=== PATIENT | female | born 1950 | race Caucasian/White ===

== ENCOUNTER 2017-09-01 06:12 | Outpatient (CLI) | payer BC ==
[~2017-09-01] VITALS: Ht 165.1 cm; Wt 90.7 kg
[~2017-09-01 06:12] MED LIST: ACHYD1T PO; AMLO1CAP4 PO; ASPI-84 PO; ASPI325T32 PO; IBP800T PO; LEVO125T PO; LEVO125T6 PO; LVT.1T; LVT.1T PO; MACRODANTIN PO; NF-ESOM40C PO; NFPRILOC40; NITR100C3 PO; OMEP20CA12 PO; OMEP40CA36 PO; PHEN200T27 PO; ROSU5TAB; SERT100T; SPIR50TA27; SRTR100T PO; SUCR1ORA5 PO; TRM50T PO; VIT B12; VIT D
[2017-09-01] MEDS ORDERED: SERT100T8 PO (15:34)
[2017-09-01] MEDS ORDERED: OMEP20CA12 PO (15:34)
[2017-09-01] MEDS ORDERED: LEVO150T6 PO (15:34)
== END 2017-09-01 15:42 ==
LOC: PREOP 06:12
PROVIDERS: ATTEND Specialist
DX: Z01.818 Encounter for other preprocedural examination (principal); H25.12 Age-related nuclear cataract, left eye

== ENCOUNTER 2017-09-08 09:08 | Day surgery (SDC) | payer MEDICARE, OTHER ==
[~2017-09-08] VITALS: Ht 165.1 cm; Wt 90.7 kg
[~2017-09-08 09:08] MED LIST changes: +LEVO150T6 PO; +SERT100T8 PO
[2017-09-08] MEDS ORDERED: VANCOMYCIN/BSS (COMPOUNDED) 10 MG/ML SYR OP ONE (09:15)
[2017-09-08] MEDS ORDERED: EPINEPHrine INJECTION 1 MG/ML AMP INJ ONE (09:15)
[2017-09-08] MEDS ORDERED: POVIDONE (BETADINE) OPHTH SOLN 5% 30 ML OP ONE (09:15)
[2017-09-08] MEDS ORDERED: TIMOLOL MALEATE 0.5% 5 ML (TIMOPTIC) BTL OU PRN (09:15)
[2017-09-08 09:30] VITALS: BP 152/70
[2017-09-08] MEDS ORDERED: MIDAZOLAM 2 MG/2 ML (VERSED) VIAL ONE (09:38)
[2017-09-08] MEDS: TETRACAINE 0.5% OPHTH SOLN 4 ML BTL (SINGLE DOSE ONLY) OU PRN ×4 (09:42→09:58)
[2017-09-08] MEDS ORDERED: LIDOCAINE PF 1% 2 ML VIAL (OR ONLY) IR PRN (09:45)
[2017-09-08] MEDS: CYCLOPENTOLATE 1% (CYCLOGYL) 2 ML DROPS OP SCH ×3 (09:47→09:58)
[2017-09-08] MEDS: PHENYLEPHRINE 10% OPHTH (NEO-SYN) 5 ML BTL OU SCH ×3 (09:47→09:58)
--- NOTE | 2017-09-08 09:59 | Ophthalmologist Pre-Op Note ---
Pre-Operative Progress Note H&P Reviewed The H&P was reviewed, patient examined and no changes noted. Date H&P Reviewed: Sep 08, 2017 Time H&P Reviewed: 09:58 Pre-Op Dx Cataract, Right Eye VERÓNICA PALM MD Sep 08, 2017 09:58
--- NOTE | 2017-09-08 10:52 | Ophthalmology Operative Report ---
Cataract removal/placement IOL PREOPERATIVE DIAGNOSIS: Cataract Right Eye POSTOPERATIVE DIAGNOSIS: Cataract Right Eye PROCEDURE: Cataract removal and placement of posterior chamber implant, right eye SURGEON: Michael Palm ANESTHESIA: Topical with sedation COMPLICATIONS: None ESTIMATED BLOOD LOSS: Minimal DESCRIPTION OF PROCEDURE: After proper informed consent was obtained, the patient, a 67 female, was taken to the Operating Room and the right eye was anesthetized with tetracaine. They right eye was then prepped and draped in the usual manner. A wire lid speculum was placed. A paracentesis was made at the left hand position. Preservative free lidocaine was injected into the anterior chamber followed by viscoelastic. A clear corneal incision was made in the temporal position. A capsulorrhexis was preformed and the central nuclear and cortical material were removed. The posterior capsule was polished and Cezar 24.0 SN6CWS IOL was placed into the capsular bag. The residual viscoelastic was aspirated and balanced saline solution was injected into the anterior chamber. 1.0 ml of Vancomycin (10mg/ 1.0ml) was injected into the anterior chamber. The would was checked and found to be water tight. The patient tolerated the procedure well without complications. MICHAEL PALM MD Sep 08, 2017 10:52
[2017-09-08 11:00] VITALS: BP 169/82
--- NOTE | 2017-09-08 14:25 | Anesthesia-General Post-Op ---
MAC Patient Condition Mental Status/LOC: Same as Preop Cardiovascular: Satisfactory Nausea/Vomiting: Absent Respiratory: Satisfactory Pain: Controlled Complications: Absent Post Op Complications Complications None Follow Up Care/Instructions Patient Instructions None needed. Anesthesiology Discharge Order Discharge Order Patient is doing well, no complaints, stable vital signs, no apparent adverse anesthesia problems. No complications reported per nursing. TIFFANI MCNAMARA CRNA Sep 08, 2017 14:24
== END 2017-09-08 11:05 | disposition home or self-care (01) ==
LOC: SDC 09:08
PROVIDERS: ATTEND Specialist
DX: H26.9 Unspecified cataract (principal); E03.9 Hypothyroidism, unspecified; K21.9 Gastro-esophageal reflux disease without esophagitis; M19.91 Primary osteoarthritis, unspecified site; Z79.899 Other long term (current) drug therapy

== ENCOUNTER 2017-09-26 05:49 | Outpatient (CLI) | payer MEDICARE, OTHER ==
[~2017-09-26] VITALS: Ht 165.1 cm; Wt 90.7 kg
== END 2017-09-26 11:18 ==
LOC: PREOP 05:49
PROVIDERS: ATTEND Specialist
DX: Z01.818 Encounter for other preprocedural examination (principal); H25.12 Age-related nuclear cataract, left eye

== ENCOUNTER 2017-09-29 06:56 | Day surgery (SDC) | payer MEDICARE, OTHER ==
[~2017-09-29] VITALS: Ht 165.1 cm; Wt 90.7 kg
[2017-09-29] MEDS: TETRACAINE 0.5% OPHTH SOLN 4 ML BTL (SINGLE DOSE ONLY) OU PRN ×4 (07:12→07:25)
[2017-09-29] MEDS ORDERED: LIDOCAINE PF 1% 2 ML AMP IR PRN (07:15)
[2017-09-29] MEDS ORDERED: POVIDONE (BETADINE) OPHTH SOLN 5% 30 ML OP ONE (07:15)
[2017-09-29] MEDS ORDERED: EPINEPHrine INJECTION 1 MG/ML AMP INJ ONE (07:15)
[2017-09-29] MEDS ORDERED: TIMOLOL MALEATE 0.5% 5 ML (TIMOPTIC) BTL OU PRN (07:15)
[2017-09-29] MEDS ORDERED: VANCOMYCIN/BSS (COMPOUNDED) 10 MG/ML SYR OP ONE (07:15)
[2017-09-29] MEDS: PHENYLEPHRINE 10% OPHTH (NEO-SYN) 5 ML BTL OU SCH ×3 (07:18→07:25)
[2017-09-29] MEDS: CYCLOPENTOLATE 1% (CYCLOGYL) 2 ML DROPS OP SCH ×3 (07:18→07:25)
[2017-09-29 07:19] VITALS: BP 138/73
[2017-09-29] MEDS ORDERED: MIDAZOLAM 2 MG/2 ML (VERSED) VIAL ONE (07:40)
[2017-09-29 08:05] VITALS: BP 145/82
--- NOTE | 2017-09-29 11:35 | Anesthesia-General Post-Op ---
MAC Patient Condition Mental Status/LOC: Same as Preop Cardiovascular: Satisfactory Nausea/Vomiting: Absent Respiratory: Satisfactory Pain: Controlled Complications: Absent Post Op Complications Complications None Follow Up Care/Instructions Patient Instructions None needed. Anesthesiology Discharge Order Discharge Order Patient is doing well, no complaints, stable vital signs, no apparent adverse anesthesia problems. No complications reported per nursing. MINOO GREER CRNA Sep 29, 2017 11:35
--- OUTSIDE RECORDS SUMMARY | 2017-10-01 03:56 | XMS REPORT | Clinical Summary ---
Author Author [facility] Organization [facility] Address Unknown Phone Unavailable Care Team Providers [employer] Project Manager Name Role Phone Sol Lee MD Unavailable Angela Patterson MD PCP Tiarra Saleh RN Unavailable Unavailable Tonia Huerta RN Unavailable Unavailable Source Comments Some departments are not documenting in the electronic medical record. If you do not see the information that you expected, contact Release of Information in the Health Information Management department at [phone] for further assistance in locating additional records.[facility] Allergies No Known Allergies Current Medications Prescription Sig. Disp. Refills Start End Date Status Date levothyroxine (SYNTHROID) Take 125 mcg by mouth Active 125 mcg tablet daily. famotidine (PEPCID) 10 mg Take 10 mg by mouth Active tablet daily. sertraline (ZOLOFT) 100 Take 150 mg by mouth Active mg tablet daily. amLODIPine (NORVASC) 10 Take 10 mg by mouth Active mg tablet daily. ciprofloxacin (CIPRO) 500 Take 1 Tab by mouth twice 2 Tab 0 05/01/20 Active mg tablet daily. 13 polyethylene glycol 3350 Take 1 Packet by mouth 12 Each 4 05/01/20 Active (MIRALAX) 17 g packet daily. 13 Active Problems Problem Noted Date AVTAR (stress urinary incontinence, female) 02/06/2013 Overview: AVTAR x5 years. Tried and failed pelvic floor exercises. SPARC 04/23/13, failed postop tov, constipation postop 05/15/13 improved pvr from 30-80mL and up to 120 and 350mL upon waking; excellent stream L ast Assessment & Plan: - continue void every 3 hours with post-void cic - rtc 2 months, for evaluation of pvr and determination to do sling lysis. Social History Tobacco Use Types Packs/Day Years Used Date Former Smoker 0.5 4 Quit: 06/19/1987 Alcohol Use Drinks/Week oz/Week Comments Yes 1-2 Glasses 0.0 of wine Sex Assigned at Date Recorded Not on file Last Filed Vital Signs Vital Sign Reading Time Taken Blood Pressure 153/88 05/15/2013 9:59 AM [employer]CHOOL SUPER[employer] Pulse 69 05/15/2013 9:59 AM SCHOOL SUPERVISOR Temperature 36.4 C (97.5 F) 04/23/2013 11:30 AM SCHOOL SUPERVISOR Respiratory Rate 14 05/15/2013 9:59 AM SCHOOL SUPERVISOR Oxygen Saturation 91% 04/23/2013 11:30 AM SCHOOL SUPERVISOR Inhaled Oxygen - - Concentration Weight 93.5 kg (206 lb 3.2 oz) 05/15/2013 9:59 AM SCHOOL SUPERVISOR Height 165.1 cm (5' 5") 05/15/2013 9:59 AM SCHOOL SUPERVISOR Body Mass Index 34.31 05/15/2013 9:59 AM SCHOOL SUPERVISOR Plan of Treatment Health Maintenance Due Date Last Done Comments HEPATITIS C SCREENING 1952 PHYSICAL (COMPREHENSIVE) 1959 EXAM PERTUSSIS VACCINE 1963 HIV SCREENING 1967 TETANUS VACCINE 1969 BREAST CANCER SCREENING 1992 COLORECTAL CANCER 2002 SCREENING SHINGLES VACCINE 2012 OSTEOPOROSIS SCREENING 2017 PREVNAR/PNEUMOVAX (#1) 2017 INFLUENZA VACCINE 03/19/2018 Results Not on filefrom Last 3 Months
--- OUTSIDE RECORDS SUMMARY | 2017-10-01 03:56 | XMS REPORT | Continuity of Care Document ---
Author Author [facility] Organization [facility] Address Unknown Phone Unavailable Allergies Active Description Code Type Severity Reaction Onset Reported/Identified Relationship to Patient Clinical Status Yes No Known Drug Allergies [id number] Drug Allergy Mild N/A 04/30/2009 Medications There is no data. Problems Date Dx Coded Attending Type Code Diagnosis Diagnosed By 03/24/2012 Ot 202.80 OTH LYMPHOMAS EXTRANODAL SOLID ORGAN U 03/24/2012 Ot 244.9 HYPOTHYROIDISM NOS 03/24/2012 Ot 272.4 HYPERLIPIDEMIA NEC/NOS 03/24/2012 Ot 300.00 ANXIETY STATE NOS 03/24/2012 Ot 311 DEPRESSIVE DISORDER NEC 03/24/2012 Ot 401.9 HYPERTENSION NOS 03/24/2012 Ot 530.81 ESOPHAGEAL REFLUX 03/24/2012 Ot 536.9 STOMACH FUNCTION DIS NOS 03/24/2012 Ot 784.0 HEADACHE 03/24/2012 Ot V10.87 HX OF THYROID MALIGNANCY 03/24/2012 Ot V17.1 FAMILY HX- STROKE 03/24/2012 Ot V17.3 FAM HX- ISCHEM HEART DIS 03/27/2012 Ot 202.80 OTH LYMPHOMAS EXTRANODAL SOLID ORGAN U 03/27/2012 Ot 244.9 HYPOTHYROIDISM NOS 03/27/2012 Ot 300.00 ANXIETY STATE NOS 03/27/2012 Ot 401.9 HYPERTENSION NOS 03/27/2012 Ot 530.81 ESOPHAGEAL REFLUX 03/27/2012 Ot 784.0 HEADACHE 03/27/2012 Ot V03.82 PROPHYLACTIC VACC AGAINST STREPTOCOCCUS 06/28/2012 Ot 244.9 HYPOTHYROIDISM NOS 06/28/2012 Ot 311 DEPRESSIVE DISORDER NEC 06/28/2012 Ot 401.9 HYPERTENSION NOS 06/28/2012 Ot 530.81 ESOPHAGEAL REFLUX 06/28/2012 Ot 592.1 CALCULUS OF URETER 06/28/2012 Ot V10.87 HX OF THYROID MALIGNANCY 06/28/2012 Ot V58.69 OTH MED,LT, CURRENT USE 04/30/2013 RY PRATHER, SAWYER Dunham Ot 788.20 RETENTION OF URINE NOS 11/28/2014 ORENDER DO, PUNEET S Ot 722.4 12/08/2014 ORENDER DO, PUNEET S Ot 721.2 12/08/2014 ORENDER DO, PUNEET S Ot 722.4 12/08/2014 ORENDER DO, PUNEET S Ot 722.4 12/09/2014 ORENDER DO, PUNEET S Ot 721.2 12/09/2014 ORENDER DO, PUNEET S Ot 722.4 12/16/2014 ORENDER DO, PUNEET S Ot 722.4 12/23/2014 ORENDER DO, PUNEET S Ot 722.4 12/25/2014 ORENDER DO, PUNEET S Ot 722.91 12/25/2014 ORENDER DO, PUNEET S Ot V57.1 12/29/2014 ORENDER DO, PUNEET S Ot 722.91 12/29/2014 ORENDER DO, PUNEET S Ot V57.1 01/01/2015 [facility] Ot 722.91 01/01/2015 [facility] Ot V57.1 01/08/2015 ORENDER DO, PUNEET S Ot 722.91 01/08/2015 SUGEYNDER DO, PUNEET S Ot V57.1 07/28/2015 Ot R07.89 07/28/2015 Ot R10.13 07/28/2015 Ot R20.2 08/05/2015 Ot R09.89 08/05/2015 Ot R42 09/01/2017 Ot 202.81 LYMPHOMAS NEC HEAD 09/01/2017 Ot 787.20 DYSPHAGIA, UNSPECIFIED 09/01/2017 Ot V15.3 HX OF IRRADIATION 09/01/2017 Ot V58.69 OTH MED,LT, CURRENT USE 09/01/2017 Ot V87.41 PERSONAL HISTORY OF ANTINEOPLASTIC CHEMO 09/01/2017 Ot 592.1 CALCULUS OF URETER 09/04/2017 VERÓNICA PALM MD Ot H25.12 AGE-RELATED NUCLEAR CATARACT, LEFT EYE 09/04/2017 VERÓNICA PALM MD Ot Z01.818 ENCOUNTER FOR OTHER PREPROCEDURAL EXAMIN 09/08/2017 VERÓNICA PALM MD Ot E03.9 HYPOTHYROIDISM, UNSPECIFIED 09/08/2017 VERÓNICA PALM MD Ot H26.9 UNSPECIFIED CATARACT 09/08/2017 VERÓNICA PALM MD Ot K21.9 GASTRO-ESOPHAGEAL REFLUX DISEASE WITHOUT 09/08/2017 VERÓNICA PALM MD Ot M19.91 PRIMARY OSTEOARTHRITIS, UNSPECIFIED SITE 09/08/2017 VERÓNICA PALM MD Ot Z79.899 OTHER LONGTERM (CURRENT) DRUG THERAPY 09/11/2017 VERÓNICA PALM MD Ot E03.9 HYPOTHYROIDISM, UNSPECIFIED 09/11/2017 VERÓNICA PALM MD Ot H26.9 UNSPECIFIED CATARACT 09/11/2017 VERÓNICA PALM MD Ot K21.9 GASTRO-ESOPHAGEAL REFLUX DISEASE WITHOUT 09/11/2017 VERÓNICA PALM MD Ot M19.91 PRIMARY OSTEOARTHRITIS, UNSPECIFIED SITE 09/11/2017 VERÓNICA PALM MD Ot Z79.899 OTHER CLINICAL DATA ASSISTANT (CURRENT) DRUG THERAPY 09/26/2017 VERÓNICA PALM MD Ot H25.12 AGE-RELATED NUCLEAR CATARACT, LEFT EYE 09/26/2017 VERÓNICA PALM MD Ot Z01.818 ENCOUNTER FOR OTHER PREPROCEDURAL EXAMIN 09/29/2017 Ot 202.81 LYMPHOMAS NEC HEAD 09/29/2017 Ot 787.20 DYSPHAGIA, UNSPECIFIED 09/29/2017 Ot V15.3 HX OF IRRADIATION 09/29/2017 Ot V58.69 OTH MED,LT, CURRENT USE 09/29/2017 Ot V87.41 PERSONAL HISTORY OF ANTINEOPLASTIC CHEMO 09/29/2017 Ot 592.1 CALCULUS OF URETER Procedures There is no data. Results There is no data. Encounters ACCT No. Visit Date/Time Discharge Status Pt. Type Provider Facility Loc./Unit Complaint [id number] 09/29/2017 06:56:00 09/29/2017 08:10:00 DIS Outpatient VERÓNICA PALM MD [facility] SDC CATARACT LEFT EYE [id number] 09/26/2017 05:49:00 09/26/2017 11:18:00 DIS Outpatient VERÓNICA PALM MD [facility] PREOP CATARACT LEFT EYE [id number] 09/08/2017 09:08:00 09/08/2017 11:05:00 DIS Outpatient VERÓNICA PALM MD [facility] SDC CATARACT [id number] 09/01/2017 06:12:00 09/01/2017 15:42:00 DIS Outpatient VERÓNICA PALM MD [facility] PREOP CATARACT [id number] 12/23/2014 09:30:00 01/08/2015 09:56:00 DIS Outpatient SUGEYNDER DO PUNEET S [facility] REHAB [id number] 11/26/2014 09:08:00 11/26/2014 23:59:59 CLS Outpatient SUGEYNDER DO PUNEET S [facility] RAD [id number] 11/20/2014 12:16:00 11/20/2014 23:59:59 CLS Outpatient ALEXANDER DO PUNEET S [facility] RAD [id number] 04/30/2013 08:03:00 04/30/2013 08:57:00 DIS Emergency RY PRATHER, SAWYER Dunham [facility] ER DIFFICULTY URINATING [id number] 09/01/2017 16:29:00 Document Registration [id number] 09/01/2017 16:29:00 Document Registration [id number] 09/01/2017 16:29:00 Document Registration [id number] 07/28/2015 16:47:00 Document Registration [id number] 07/24/2015 14:37:00 Document Registration [id number] 06/27/2012 00:56:00 Document Registration [id number] 06/26/2012 14:51:00 Document Registration [id number] 03/25/2012 15:37:00 Document Registration [id number] 03/22/2012 15:07:00 Document Registration [id number] 08/04/2011 00:00:00 Document Registration 05/16/18 09/25/2017 19:02:50 09/25/2017 23:59:59 CLS Outpatient Puneet Patterson. [facility] 12/23/2014 11:27:03 ACT Document Registration
--- NOTE | 2017-10-06 11:20 | OPERATIVE REPORT ---
DATE OF SERVICE: 09/29/2017 PREOPERATIVE DIAGNOSIS: Nuclear sclerotic cataract, left eye. POSTOPERATIVE DIAGNOSIS: Nuclear sclerotic cataract, left eye. PROCEDURE: Phacoemulsification with posterior chamber intraocular lens. ANESTHESIA: Topical with IV sedation. COMPLICATIONS: No complications. DESCRIPTION OF PROCEDURE: An informed consent was obtained with the patient placed on her chart. She was taken to the operating room and placed in a supine position on the operating table. Her eye had been dilated in the preoperative area. She was sedated by the anesthesia provider. She was prepped and draped in the usual sterile fashion. A wire lid speculum was placed and the operating microscope was moved into position. A paracentesis was made at the left hand position. Preservative-free lidocaine was injected into the anterior chamber followed by viscoelastic. A clear corneal incision was then made in the temporal position with a 2.75 mm keratome. A capsulorrhexis was then made. Hydrodissection was carried out with balanced salt saline and the nucleus was removed by phacoemulsification. The cortex was aspirated. The posterior capsule was polished and the anterior chamber was refilled with viscoelastic. An Cezar model SN6CWS 24.5 diopter lens was placed into the capsular bag. The viscoelastic was aspirated. The anterior chamber was filled with balanced salt saline and 1 mg of vancomycin was injected. The wounds were checked and found to be watertight. She tolerated the procedure well and was taken recovery room in stable condition. Job ID: [id number] DocumentID: [id number] Dictated Date: 10/05/2017 09:01:44 Chicken Buyer Date: 10/05/2017 16:29:18 Dictated By: VERÓNICA PALM MD
== END 2017-09-29 08:10 | disposition home or self-care (01) ==
LOC: SDC 06:56
PROVIDERS: ATTEND Specialist
DX: H25.12 Age-related nuclear cataract, left eye (principal); E03.9 Hypothyroidism, unspecified; K21.9 Gastro-esophageal reflux disease without esophagitis; Z79.899 Other long term (current) drug therapy

== ENCOUNTER → 2018-05-04 | Outpatient (CLI) | payer MEDICARE, OTHER ==
--- NOTE | 2018-05-04 10:04 | Diagnostic Imaging Report ---
PROCEDURE: US Gallbladder. TECHNIQUE: Multiple real-time grayscale images were obtained over the right upper quadrant in various projections. INDICATION: Right upper quadrant pain and epigastric pain. FINDINGS: The liver is normal in size 16.2 cm. No discrete liver mass is identified. The portal vein is patent and shows normal direction of flow. The gallbladder is without stones or sludge. No wall thickening or biliary ductal dilatation is seen. The pancreas and right kidney are unremarkable. There is no ascites. IMPRESSION: Unremarkable gallbladder ultrasound. Dictated by: Dictated on workstation # [id number]
--- NOTE | 2018-05-04 10:19 | Diagnostic Imaging Report ---
INDICATION: Cough. TIME OF EXAMINATION: 09:29 a.m. COMPARISON: Correlation is made with prior study from 07/28/2015. FINDINGS: The heart size is normal. The pulmonary vascularity is unremarkable. The lungs are clear. No infiltrate, effusion or pneumothorax is detected. IMPRESSION: No acute cardiopulmonary process is detected. Dictated by: Dictated on workstation # [id number]
== END ==
LOC: RAD 08:51
PROVIDERS: ATTEND Family Medicine
DX: R05 Cough (principal); R10.11 Right upper quadrant pain; R10.13 Epigastric pain
CPT/HCPCS: 71046; 76705

== ENCOUNTER → 2018-08-03 | Outpatient (CLI) | payer MEDICARE, OTHER ==
--- NOTE | 2018-08-03 16:00 | Diagnostic Imaging Report ---
INDICATION: Routine screening. COMPARISON: 10/14/2008. TECHNIQUE: 2D and 3D bilateral screening mammography was performed with CAD. FINDINGS: Scattered fibroglandular densities are identified bilaterally. The parenchymal pattern is stable. No dominant mass or malignant appearing microcalcifications are seen. The axillae are unremarkable. IMPRESSION: No mammographic features suspicious for malignancy are identified. ACR BI-RADS Category 1: Negative. Result letter will be mailed to the patient. Note: At least 10% of breast cancer is not imaged by mammography. Dictated by: Dictated on workstation # [id number]
== END ==
LOC: RAD 09:53
PROVIDERS: ATTEND Family Medicine
DX: Z12.31 Encounter for screening mammogram for malignant neoplasm of breast (principal)
CPT/HCPCS: 77067

== ENCOUNTER 2018-08-13 05:45 | Outpatient (CLI) | payer MEDICARE, OTHER ==
[~2018-08-13] VITALS: Ht 165.1 cm; Wt 90.7 kg
== END 2018-08-13 16:05 ==
LOC: PREOP 05:45
PROVIDERS: ATTEND Internal Medicine
DX: Z01.818 Encounter for other preprocedural examination (principal)

== ENCOUNTER 2018-08-17 07:55 | Day surgery (SDC) | payer MEDICARE, OTHER ==
--- NOTE | 2018-08-10 11:57 | HISTORY AND PHYSICAL ---
DATE OF SERVICE: COLONOSCOPY HISTORY AND PHYSICAL HISTORY OF PRESENT ILLNESS: The patient is a 68-year-old white female, referred by Dr. Patterson for screening colonoscopy. She has a distant past history of colon polyps and has been over 10 years since her last colonoscopy. She did undergo EGD evaluation in 2010 at which time she was noted to have a small hiatal hernia with mild reflux changes, apparently a nonerosive. She reports that she has been feeling well. She denies any bowel habit change and reports no bright red blood per rectum, melena or abdominal pain and there has been no recent change in weight. She has had no reflux type symptoms as long she takes her omeprazole and has had no dysphagia. 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 PAST SURGICAL HISTORY: Noncontributory. FAMILY HISTORY: Father at age of 52 of complications from acute pancreatitis. Mother at age of 88 reportedly of natural causes. She is not aware of any family history for colon cancer or colon polyps. SOCIAL HISTORY: The patient is retired with a [id number] smoking history, quitting 30 years ago. She has an occasional glass of wine. No history of significant alcohol consumption. PHYSICAL EXAMINATION: GENERAL: Reveals a well-appearing white female, in no acute distress. VITAL SIGNS: Weight is 201.2 pounds, blood pressure 126/80. HEENT: Unremarkable. She has a Mallampati class 2 oropharyngeal configuration. No erythema or exudate is noted. NECK: Revealed no JVD, adenopathy or bruits. CHEST: Clear to auscultation. CARDIOVASCULAR: Reveals regular rate and rhythm without murmur, S3 or S4. ABDOMEN: Soft, supple without mass, organomegaly or tenderness. EXTREMITIES: Reveal no cyanosis, clubbing or edema. ASSESSMENT AND PLAN: The patient is set up for screening colonoscopy on 08/17/2018. Prep instructions were given and questions were answered. Electronic medical record was reviewed. Thirty-five minutes my personal care time has been spent with another 15 minutes of staff time setting of the procedure and going over prep instructions. I thank you for the referral of this pleasant lady. Job ID: [id number] DocumentID: [id number] Dictated Date: 08/10/2018 10:39:54 Bridal Gown Fitter Date: 08/10/2018 11:56:02 Dictated By: ELENA YU MD
[~2018-08-17] VITALS: Ht 165.1 cm; Wt 90.7 kg
[2018-08-17] MEDS ORDERED: D5 LR IV SOLUTION 1,000 ML IV ONE (08:06)
[2018-08-17] MEDS ORDERED: D5 LR IV SOLUTION 1,000 ML IV STA (08:20)
[2018-08-17 08:23] VITALS: BP 128/73
[2018-08-17] MEDS ORDERED: MIDAZOLAM 2 MG/2 ML (VERSED) VIAL IVP ONE (08:30)
[2018-08-17] MEDS ORDERED: LIDOCAINE JELLY 2% 6 ML SYRINGE MM PRN (08:30)
[2018-08-17] MEDS ORDERED: fentaNYL INJECTION 100 MCG/2 ML AMP IVP ONE (08:30)
[2018-08-17] MEDS ORDERED: LIDOCAINE JELLY 2% 6 ML SYRINGE ONE (09:05)
[2018-08-17] MEDS ORDERED: fentaNYL INJECTION 100 MCG/2 ML AMP ONE (09:05)
[2018-08-17] MEDS ORDERED: MIDAZOLAM 2 MG/2 ML (VERSED) VIAL ONE ×2 (09:05)
[2018-08-17 09:45] VITALS: BP 126/63
--- NOTE | 2018-08-17 09:45 | Pre-Op Note & Conscious Sedat ---
Pre-Operative Progress Note H&P Reviewed The H&P was reviewed, patient examined and no changes noted. Date H&P Reviewed: Aug 17, 2018 Time H&P Reviewed: 09:00 Conscious Sedation Pre-Proced ASA Score 2 For ASA 3 and 4: Consider anesthesia and medical clearance. Also, for patients with a history of failed moderate sedation consider anesthesia. Airway Lungs Heart ASA score ASA 1: a normal healthy patient ASA 2: a patient with a mild systemic disease (mid diabetes, controlled hypertension, obesity ASA 3: a patient with a severe systemic disease that limits activity (angina , COPD, prior Myocardial infarction) ASA 4: a patient with an incapacitating disease that is a constant threat to life (CHF, renal failure) ASA 5: a moribund patient not expected to survive 24 hrs. (ruptured aneurysm) ASA 6: a declared brain- patient whose organs are being harvested. For emergent operations, add the letter E after the classification Mallampati Classification Grade 2 Sedation Plan Analgesia, Amnesia, Plan communicated to team members, Discussed options with patient/fam, Discussed risks with patient/fam The patient is an appropriate candidate to undergo the planned procedure, sedation, and anesthesia. The patient immediately re-assessed prior to indication. ELENA YU MD Aug 17, 2018 09:45
[2018-08-17 10:20] VITALS: BP 137/69
[2018-08-17 11:49] VITALS: BP 137/69
--- NOTE | 2018-08-18 04:08 | OPERATIVE REPORT ---
DATE OF SERVICE: COLONOSCOPY SUMMARY INDICATION FOR THE PROCEDURE: Screening colonoscopy. The patient was placed in the left lateral decubitus position. Prior to undergoing colonoscopy, digital rectal evaluation was performed. Anal sphincter tone was normal and the perianal reflexes were intact. No abnormalities were noted on digital inspection of anal canal or distal rectal vault. The colonoscope was then inserted into the rectum and under direct visualization advanced to the cecum. The cecum was identified by identification of the ileocecal valve and cecal strap. Photographic documentation was obtained. Careful inspection was made as the colonoscope was withdrawn. The quality of the prep was good. FINDINGS: There is no evidence for internal or external hemorrhoids and the rectum was unremarkable. Multiple small to medium size sigmoid diverticulum were present without evidence for diverticulitis. Present at 30 cm from the anal verge in the mid sigmoid colon was a 5 mm sessile adenomatous appearing polyp with no evidence for inflammatory change or ulceration. It was biopsied and ablated and submitted for histopathology with no significant blood loss. Remainder of the sigmoid colon other than diverticular disease was unremarkable. The descending colon, splenic flexure, transverse colon, hepatic flexure, ascending colon and cecum were unremarkable. ASSESSMENT: 1. Moderate diverticular disease confined to the sigmoid colon was present without evidence for diverticulitis. 2. One small 5 mm sessile adenomatous appearing polyp was present in the mid sigmoid colon 30 cm from the anal canal. It was biopsied and ablated and submitted for histopathology. We will await histopathology report before making recommendations for future surveillance colonoscopy. I thank you for the referral of this pleasant lady. Job ID: [id number] DocumentID: [id number] Dictated Date: 08/17/2018 17:05:28 Drawer In Dobby Loom Date: 08/18/2018 04:07:53 Dictated By: ELENA YU MD [facility]
--- OUTSIDE RECORDS SUMMARY | 2018-08-19 08:47 | XMS REPORT | Clinical Summary ---
Author Author [facility] Organization [facility] Address Unknown Phone Unavailable Care Team Providers Care Emergency Department Nurse Name Role Phone Sol Lee MD Unavailable Angela Patterson MD PCP Tiarra Saleh RN Unavailable Unavailable Tonia Huerta RN Unavailable Unavailable Source Comments Some departments are not documenting in the electronic medical record. If you do not see the information that you expected, contact Release of Information in the Health Information Management department at [phone] for further assistance in locating additional records.[facility] Allergies No Known Allergies Medications End Date Status Medication Sig Dispensed Refills Start Date Active levothyroxine (SYNTHROID) Take 125 mcg 0 125 mcg tablet by mouth daily. Active famotidine (PEPCID) 10 mg Take 10 mg by 0 tablet mouth daily. Active sertraline (ZOLOFT) 100 Take 150 mg 0 mg tablet by mouth daily. Active amLODIPine (NORVASC) 10 Take 10 mg by 0 mg tablet mouth daily. Active ciprofloxacin (CIPRO) 500 Take 1 Tab by 2 Tab 0 mg tablet mouth twice 3 daily. Active polyethylene glycol 3350 Take 1 Packet 12 Each 4 (MIRALAX) 17 g packet by mouth 3 daily. Active Problems Problem Noted Date AVTAR (stress [...] determination to do sling lysis. Social History Date Tobacco Use Types Packs/Day Years Used Quit: 06/19/1987 Former Smoker 0.5 4 Alcohol Use Drinks/Week oz/Week Comments Yes 1-2 Glasses 0.0 of wine Sex Assigned at Date Recorded Not on file Industry Job Start Date Occupation Not on file Not on file Not on file Travel End Travel History Travel Start No recent travel history available. Last Filed Vital Signs Time Taken Vital Sign Reading 05/15/2013 9:59 AM PALLIATIVE NURSE Blood Pressure 153/88 05/15/2013 9:59 AM PALLIATIVE NURSE Pulse 69 04/23/2013 11:30 AM PALLIATIVE NURSE Temperature 36.4 C (97.5 F) 05/15/2013 9:59 AM PALLIATIVE NURSE Respiratory Rate 14 04/23/2013 11:30 AM PALLIATIVE NURSE Oxygen Saturation 91% - Inhaled Oxygen - Concentration 05/15/2013 9:59 AM PALLIATIVE NURSE Weight 93.5 kg (206 lb 3.2 oz) 05/15/2013 9:59 AM PALLIATIVE NURSE Height 165.1 cm (5' 5") 05/15/2013 9:59 AM PALLIATIVE NURSE Body Mass Index 34.31 Plan of Treatment Health Maintenance Due Date Last Done Comments HEPATITIS C SCREENING 1952 PHYSICAL (COMPREHENSIVE) 1959 EXAM DTAP/TDAP VACCINES (1 - 1970 Tdap) BREAST CANCER SCREENING 1992 COLORECTAL CANCER 2002 SCREENING SHINGLES RECOMBINANT 2002 VACCINE (1 of 2) OSTEOPOROSIS 2017 SCREENING/MONITORING PNEUMONIA (PCV13/PPSV23) 2017 VACCINES (1 of 2 - PCV13) INFLUENZA VACCINE 01/17/2019 Results Not on filefrom Last 3 Months Insurance Payer Benefit Subscriber ID Type Phone Address Plan / Group [facility] xxxxxxxxx [facility] Advance Directives Patient has advance care planning documents on file. For more information, please contact: [facility] [address] [place] [address]
--- OUTSIDE RECORDS SUMMARY | 2018-08-19 08:48 | XMS REPORT | Continuity of Care Document ---
Author Author [facility] Organization [facility] Address Unknown Phone Unavailable Allergies Active Description Code Type Severity Reaction Onset Reported/Identified Relationship to Patient Clinical Status Yes No Known Drug Allergies [id number] Drug Allergy Mild N/A 04/30/2009 Medications There [...] ORENDER DO, PUNEET S Ot V57.1 [facility] Ot 722.91 01/01/[facility] Ot V57.1 01/08/2015 ORENDER [...] 09/08/2017 VERÓNICA PALM MD Ot Z79.899 OTHER RETIREMENT (CURRENT) DRUG THERAPY 09/11/2017 VERÓNICA PALM MD Ot E03.9 HYPOTHYROIDISM, UNSPECIFIED 09/11/2017 VERÓNICA PALM MD Ot H26.9 UNSPECIFIED CATARACT 09/11/2017 VERÓNICA PALM MD Ot K21.9 GASTRO-ESOPHAGEAL REFLUX DISEASE WITHOUT 09/11/2017 VERÓNICA PALM MD Ot M19.91 PRIMARY OSTEOARTHRITIS, UNSPECIFIED SITE 09/11/2017 VERÓNICA PALM MD Ot Z79.899 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 09/26/2017 VERÓNICA PALM MD Ot H25.12 AGE-RELATED NUCLEAR CATARACT, LEFT EYE 09/26/2017 VERÓNICA PALM MD Ot Z01.818 ENCOUNTER FOR OTHER PREPROCEDURAL EXAMIN 09/29/2017 Ot 202.81 LYMPHOMAS NEC HEAD 09/29/2017 Ot 787.20 DYSPHAGIA, UNSPECIFIED 09/29/2017 Ot V15.3 HX OF IRRADIATION 09/29/2017 Ot V58.69 OTH MED,LT, CURRENT USE 09/29/2017 Ot V87.41 PERSONAL HISTORY OF ANTINEOPLASTIC CHEMO 09/29/2017 Ot 592.1 CALCULUS OF URETER 09/29/2017 VERÓNICA PALM MD Ot E03.9 HYPOTHYROIDISM, UNSPECIFIED 09/29/2017 VEÓRNICA PALM MD Ot H25.12 AGE-RELATED NUCLEAR CATARACT, LEFT EYE 09/29/2017 VERÓNICA PALM MD Ot K21.9 GASTRO-ESOPHAGEAL REFLUX DISEASE WITHOUT 09/29/2017 VERÓNICA PALM MD Ot Z79.899 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 10/11/2017 VERÓNICA PALM MD Ot E03.9 HYPOTHYROIDISM, UNSPECIFIED 10/11/2017 VERÓNICA PALM MD Ot H25.12 AGE-RELATED NUCLEAR CATARACT, LEFT EYE 10/11/2017 VERÓNICA PALM MD Ot K21.9 GASTRO-ESOPHAGEAL REFLUX DISEASE WITHOUT 10/11/2017 VERÓNICA PALM MD Ot Z79.899 OTHER RETIREMENT (CURRENT) DRUG THERAPY 05/07/2018 ORENDER DO, PUNEET S Ot R05 COUGH 05/07/2018 ORENDER DO, PUNEET S Ot R10.11 RIGHT UPPER QUADRANT PAIN 05/07/2018 ORENDER DO, PUNEET S Ot R10.13 EPIGASTRIC PAIN 05/29/2018 ORENDER DO, PUNEET S Ot R05 COUGH 05/29/2018 ORENDER DO, PUNEET S Ot R10.11 RIGHT UPPER QUADRANT PAIN 05/29/2018 ORENDER DO, PUNEET S Ot R10.13 EPIGASTRIC PAIN 08/05/2018 ORENDER DO, PUNEET S Ot Z12.31 ENCNTR SCREEN MAMMOGRAM FOR MALIGNANT NE Procedures There is no data. Results There is no data. Encounters ACCT No. Visit Date/Time Discharge Status Pt. Type Provider Facility Loc./Unit Complaint [id number] 08/17/2018 07:55:00 08/17/2018 10:30:00 DIS Outpatient ELENA YU MD [facility] ENDO SCREENING [id number] 08/13/2018 05:45:00 08/13/2018 16:05:00 DIS Outpatient ELENA YU MD [facility] PREOP COLONOSCOPY [id number] 07/31/2018 10:20:00 07/31/2018 23:59:59 CLS Outpatient ALEXANDER DO, PUNEET S [facility] RAD SCREENING [id number] 05/04/2018 08:51:00 05/04/2018 23:59:59 CLS Outpatient SUGEYNDRAMIN DO PUNEET S [facility] RAD RUQ/EPIGASTRIC PAIN , COUGH [id number] 09/29/2017 06:56:00 09/29/2017 08:10:00 DIS Outpatient VERÓNICA PALM MD [facility] SDC CATARACT LEFT EYE [id number] 09/26/2017 05:49:00 09/26/2017 11:18:00 DIS Outpatient VERÓNICA PALM MD [facility] PREOP CATARACT LEFT EYE [id number] 09/08/2017 09:08:00 09/08/2017 11:05:00 DIS Outpatient VERÓNICA PALM MD [facility] SDC CATARACT [id number] 09/01/2017 06:12:00 09/01/2017 15:42:00 DIS Outpatient VERÓNICA PALM MD [facility] PREOP CATARACT [id number] 12/23/2014 09:30:00 01/08/2015 09:56:00 DIS Outpatient BLOSSOM PATTERSON DOLINE S [facility] REHAB [id number] 11/26/2014 09:08:00 11/26/2014 23:59:59 CLS Outpatient SUGEYNDER DO PUNEET S [facility] RAD [id number] 11/20/2014 12:16:00 11/20/2014 23:59:59 CLS Outpatient MICHELINEER DO PUNEET S [facility] RAD [id number] 04/30/2013 08:03:00 04/30/2013 08:57:00 DIS Emergency SAWYER RAZA MD [facility] ER DIFFICULTY URINATING [id number] 09/01/2017 16:29:00 Document Registration [id number] 09/01/2017 16:29:00 Document Registration [id number] 09/01/2017 16:29:00 Document Registration [id number] 07/28/2015 16:47:00 Document Registration [id number] 07/24/2015 14:37:00 Document Registration [id number] 06/27/2012 00:56:00 Document Registration [id number] 06/26/2012 14:51:00 Document Registration [id number] 03/25/2012 15:37:00 Document Registration [id number] 03/22/2012 15:07:00 Document Registration [id number] 08/04/2011 00:00:00 Document Registration 05/16/18 07/30/2018 23:31:14 07/30/2018 23:59:59 [facility] Outpatient Puneet Patterson [facility] 12/23/2014 11:27:03 ACT Document Registration
== END 2018-08-17 10:30 | disposition home or self-care (01) ==
LOC: ENDO 07:55
PROVIDERS: ATTEND Internal Medicine
DX: Z12.11 Encounter for screening for malignant neoplasm of colon (principal); D12.5 Benign neoplasm of sigmoid colon; K57.30 Diverticulosis of large intestine without perforation or abscess without bleeding; K21.9 Gastro-esophageal reflux disease without esophagitis; K44.9 Diaphragmatic hernia without obstruction or gangrene; Z85.72 Personal history of non-Hodgkin lymphomas; Z87.891 Personal history of nicotine dependence; Z92.21 Personal history of antineoplastic chemotherapy

== ENCOUNTER → 2019-01-02 | Outpatient (CLI) | payer MEDICARE, OTHER ==
--- NOTE | 2019-01-02 13:30 | Diagnostic Imaging Report ---
PROCEDURE: US Thyroid. TECHNIQUE: Multiple real-time grayscale images were obtained of the thyroid in various projections. INDICATION: Dysphagia. Patient has history of radiation therapy to the neck. FINDINGS: Right lobe of the thyroid measures 3.0 x 1.0 x 1.1 cm and the left lobe measures 2.7 x 0.6 x 1.1 cm. Circumscribed hypoechoic solid-appearing nodule in the upper pole of the right lobe measures approximately 6 mm x 5 mm x 4 mm. Tiny cyst in the right lobe is also seen measuring 3 mm. Hypoechoic nodule in the left lobe in the mid aspect is seen measuring 7 mm x 6 mm x 10 mm. No microcalcifications are seen. Tiny cyst in the upper pole on the left measures 3 mm. No other abnormalities are identified. IMPRESSION: Bilateral thyroid nodules and cysts, as described. No dominant thyroid mass is detected. Dictated by: Dictated on workstation # [id number]
== END ==
LOC: RAD 10:52
PROVIDERS: ATTEND Family Medicine
DX: E04.2 Nontoxic multinodular goiter (principal); R13.10 Dysphagia, unspecified
CPT/HCPCS: 76536

== ENCOUNTER → 2019-01-03 | Outpatient (CLI) | payer MEDICARE, OTHER ==
[2019-01-07 09:26] VITALS: BP 180/84
--- NOTE | 2019-01-07 09:26 | Cardiology Stress Test Report ---
Stress Test Report Date of Procedure/Referring: Date of Procedure: Jan 03, 2019 PCP Angela Patterson DO Admitting Physician Angela Patterson DO Indications: Chest pain, shortness of breath Baseline Heart Rate: 67 Baseline Blood Pressure: Blood Pressure Systolic: 180 Blood Pressure Diastolic: 84 Baseline EKG: Baseline EKG: sinus rhythm with 1 PVC Summary/Conclusion: Summary: In summary, the patient started exercising with a baseline heart rate, blood pressure and EKG mentioned above Patient was able to exercise for a total of 3.42 minutes on Anthony protocol, 5.4 METs Maximum heart rate 147 BPM which is 95 percent of maximum predicted heart rate response. Maximum blood pressure 189/84 mmHg. Stress EKG nondiagnostic due to significant artifact. Recovery EKG normal. Conclusion: 1. Average functional capacity. 2. Hypertensive response. 3. Stress EKG is nondiagnostic due to significant artifact; other modality is recommended.. Pat PERRY MD Jan 07, 2019 09:26
== END ==
LOC: CARD 13:29
PROVIDERS: ATTEND Family Medicine
DX: I10 Essential (primary) hypertension (principal); R06.09 Other forms of dyspnea; R07.9 Chest pain, unspecified; R53.83 Other fatigue
CPT/HCPCS: 93017

== ENCOUNTER → 2019-02-25 | Outpatient (CLI) | payer MEDICARE, OTHER ==
[~2019-02-25] MED LIST changes: -OMEP20CA12 PO; +OMEP20CA13 PO
== END ==
LOC: CARD 08:41
PROVIDERS: ATTEND Internal Medicine Cardiovascular Disease
DX: I10 Essential (primary) hypertension (principal); R53.83 Other fatigue; R06.02 Shortness of breath; R06.09 Other forms of dyspnea; R07.9 Chest pain, unspecified
CPT/HCPCS: 93306; 93351

== ENCOUNTER → 2019-06-25 | Outpatient (CLI) | payer MEDICARE, OTHER ==
--- NOTE | 2019-06-25 09:11 | Diagnostic Imaging Report ---
INDICATION: Right leg pain. Right leg venous Doppler study was performed in the routine fashion with color flow Doppler and waveform analysis. FINDINGS: The right common femoral vein, superficial femoral vein, popliteal vein and visualized portion of the tibial veins show normal compressibility and venous flow patterns. There is normal augmentation. IMPRESSION: No evidence of deep vein thrombosis of the major veins of the right leg. Dictated by: Dictated on workstation # [id number]
== END ==
LOC: RAD 07:49
PROVIDERS: ATTEND Family Medicine
DX: M79.661 Pain in right lower leg (principal); R22.41 Localized swelling, mass and lump, right lower limb
CPT/HCPCS: 93970

== ENCOUNTER → 2020-08-31 | Outpatient (CLI) | payer MEDICARE, OTHER ==
[~2020-08-31] MED LIST changes: -OMEP20CA13 PO; +OMEP20CA18 PO; +SERT-414 PO; -SERT100T8 PO
--- NOTE | 2020-08-31 10:23 | Diagnostic Imaging Report ---
INDICATION: Routine screening. COMPARISON: 08/03/2018. TECHNIQUE: 2D and 3D bilateral screening mammography was performed with CAD. FINDINGS: Scattered fibroglandular densities are identified bilaterally. No dominant mass or malignant appearing microcalcifications are seen. The axillae are unremarkable. IMPRESSION: No mammographic features suspicious for malignancy are identified. ACR BI-RADS Category 1: Negative. Result letter will be mailed to the patient. Note: At least 10% of breast cancer is not imaged by mammography. Dictated by: Dictated on workstation # [id number]
== END ==
LOC: RAD 09:30
PROVIDERS: ATTEND Family Medicine
DX: Z12.31 Encounter for screening mammogram for malignant neoplasm of breast (principal)
CPT/HCPCS: 77063; 77067

== ENCOUNTER → 2020-09-24 | Outpatient (CLI) | payer MEDICARE, OTHER ==
--- NOTE | 2020-09-24 09:43 | Diagnostic Imaging Report ---
PROCEDURE: US Gallbladder. TECHNIQUE: Multiple real-time grayscale images were obtained over the right upper quadrant in various projections. INDICATION: Epigastric pain after eating. The liver is normal in size at 13.8 cm. No discrete liver mass is identified. The portal vein is patent and shows normal direction of flow. The gallbladder is without stones or sludge. No wall thickening or biliary duct dilatation is identified. The visualized pancreas is unremarkable. Abdominal aorta is ectatic but nonaneurysmal. The right kidney is without calculi or hydronephrosis. There is no ascites. IMPRESSION: No evidence of cholelithiasis or acute cholecystitis. Dictated by: Dictated on workstation # [id number]
== END ==
LOC: RAD 08:30
PROVIDERS: ATTEND Family Medicine
DX: R10.13 Epigastric pain (principal); R10.11 Right upper quadrant pain
CPT/HCPCS: 76705

== ENCOUNTER → 2021-04-06 | Outpatient (CLI) | payer MEDICARE, OTHER ==
--- NOTE | 2021-04-06 11:08 | Diagnostic Imaging Report ---
PROCEDURE: US carotid duplex, bilateral. TECHNIQUE: Multiple real-time grayscale images were obtained over the carotid arteries in various projections, bilaterally. Additional spectral analysis and color Doppler duplex images were also obtained. INDICATION: Carotid stenosis Parameters based on the consensus panel Ashby-Scale and Doppler ultrasound criteria published April 2003, Radiology, Volume 229. DOPPLER (peak systolic velocity M/S Right Left CCA .92 .98 ICA Proximal .84 .80 ICA Mid .85 1.16 ICA Distal .85 .73 RATIO .93 1.18 ECA 1.06 1.27 VERT .81 .53 Plaque is seen within the bilateral carotid bulbs and bifurcations extending into the internal carotid arteries bilaterally. Waveforms are normal. Normal antegrade flow within both vertebral arteries. IMPRESSION: Atherosclerosis with less than 50% stenosis of the bilateral internal carotid arteries by velocity and ratio criteria. Dictated by: Dictated on workstation # [id number]
== END ==
LOC: RAD 09:45
PROVIDERS: ATTEND Family Medicine
DX: I65.23 Occlusion and stenosis of bilateral carotid arteries (principal)
CPT/HCPCS: 93880

== ENCOUNTER → 2021-07-09 | Outpatient (CLI) | payer MEDICARE, OTHER ==
--- NOTE | 2021-07-09 14:01 | Diagnostic Imaging Report ---
PROCEDURE: CT neck soft tissue without contrast. TECHNIQUE: Multiple contiguous axial images were obtained through the neck without the use of intravenous contrast. Auto Exposure Controls were utilized during the CT exam to meet ALARA standards for radiation dose reduction. INDICATION: Cervical lymphadenopathy. History of lymphoma. COMPARISON: None available. FINDINGS: No enlarged cervical lymph nodes. Airway is widely patent. No abnormality of the parapharyngeal fat. No retropharyngeal fluid collection. Epiglottis is normal. True and false vocal folds are normal in appearance. The thyroid cartilage and hyoid bones are unremarkable. Thyroid is either atrophic or surgically absent. The submandibular and parotid glands are normal in appearance. The visualized aspects of the brain are unremarkable. No concerning abnormality in the cervical spine or visualized portions of the calvarium. Lung apices are clear. IMPRESSION: No cervical lymphadenopathy. Dictated by: Dictated on workstation # [id number]
== END ==
LOC: RAD 13:15
PROVIDERS: ATTEND Family Medicine
DX: R59.0 Localized enlarged lymph nodes (principal); Z85.72 Personal history of non-Hodgkin lymphomas
CPT/HCPCS: 70490

== ENCOUNTER 2021-10-14 05:29 | Outpatient (CLI) | payer MEDICARE, OTHER ==
[~2021-10-14] VITALS: Ht 165.1 cm; Wt 90.9 kg
[2021-10-20] MEDS ORDERED: LOSA1TAB20 PO (13:13)
== END 2021-10-20 13:18 | disposition home or self-care (01) ==
LOC: PREOP 05:29
PROVIDERS: ATTEND Specialist
DX: Z01.818 Encounter for other preprocedural examination (principal)

== ENCOUNTER 2021-10-22 08:05 | Day surgery (SDC) | payer MEDICARE, OTHER ==
[~2021-10-22] VITALS: Ht 165.1 cm; Wt 90.9 kg
[~2021-10-22 08:05] MED LIST changes: +LOSA1TAB20 PO
[2021-10-22 08:30] VITALS: BP 165/80
[2021-10-22] MEDS ORDERED: TROPICAMIDE 1% OPH SOLN (MYDRIACYL) 15 ML BTL OU PRN (08:30)
[2021-10-22] MEDS ORDERED: PHENYLEPHRINE 10% OPHTH (NEO-SYN) 5 ML BTL OU PRN (08:30)
--- NOTE | 2021-10-22 08:32 | Ophthalmologist Pre-Op Note ---
Pre-Operative Progress Note H&P Reviewed The H&P was reviewed, patient examined and no changes noted. Date H&P Reviewed: October 22, 2021 Time H&P Reviewed: 08:32 Pre-Op Dx Secondary Cataract, Bilateral Eyes VERÓNICA PALM MD October 22, 2021 08:32
[2021-10-22] MEDS: TETRACAINE 0.5% OPHTH SOLN 4 ML BTL (SINGLE DOSE ONLY) OU PRN ×2 (08:37→08:47)
--- NOTE | 2021-10-22 09:27 | Ophthalmology Operative Report ---
YAG Capsulotomy PREOPERATIVE DIAGNOSIS: Secondary Cataract Bilateral POSTOPERATIVE DIAGNOSIS: Secondary Cataract Bilateral PROCEDURE: YAG Capsulotomy, Bilateral SURGEON: Michael Palm ANESTHESIA: Topical anesthesia COMPLICATIONS: None ESTIMATED BLOOD LOSS: Minimal DESCRIPTION OF PROCEDURE: After proper informed consent was obtained, the patient's, a 71 female , received one drop of Tropicamide and one drop of Tetracaine in each eye. The patient was then placed at the YAG laser and using a power of [4.0 ] millijoules and bursts [ 16] right eye and [ 21] left eye were used to fashion a central capsulotomy. The patient tolerated the procedure well without complications, MICHAEL PALM MD October 22, 2021 09:27
== END 2021-10-22 09:20 | disposition home or self-care (01) ==
LOC: SDC 08:05
PROVIDERS: ATTEND Specialist
DX: H26.40 Unspecified secondary cataract (principal); Z87.891 Personal history of nicotine dependence

== ENCOUNTER → 2022-03-28 | Outpatient (CLI) | payer MEDICARE, OTHER ==
--- NOTE | 2022-03-28 12:25 | Diagnostic Imaging Report ---
EXAMINATION: Chest 2 view HISTORY: POST COVID U09.0 COMPARISON: 05/04/2018 FINDINGS: Heart size and pulmonary vasculature are normal. The lungs are clear without consolidation, pleural effusion, or pneumothorax. Degenerative changes of the thoracic spine. Osseous structures are otherwise intact. IMPRESSION: 1. No acute radiographic abnormality in the chest. Dictated by: Dictated on workstation # [id number]
== END ==
LOC: RAD 10:42
PROVIDERS: ATTEND Family Medicine
DX: U09.9 Post COVID-19 condition, unspecified (principal)
CPT/HCPCS: 71046

== ENCOUNTER → 2022-06-08 | Outpatient (CLI) | payer MEDICARE, OTHER | LOC: CARD 16:31 | PROVIDERS: ATTEND Family Medicine | DX: I51.7 Cardiomegaly (principal) | CPT/HCPCS: 93005 ==

== ENCOUNTER → 2022-09-19 | Outpatient (CLI) | payer MEDICARE, OTHER ==
[2022-09-19 09:51] VITALS: BP 144/91
--- NOTE | 2022-09-19 11:03 | Cardiology Stress Test Report ---
Stress Test Report Date of Procedure/Referring: Date of Procedure: Sep 19, 2022 PCP Angela Patterson DO Admitting Physician Admitting Physician: Attending Physician: Stella Barron Indications: CP Baseline Heart Rate: 68 Baseline Blood Pressure: Blood Pressure Systolic: 144 Blood Pressure Diastolic: 91 Baseline EKG: Baseline EKG: NSR Summary/Conclusion: Summary: In summary, the patient started exercising with a baseline heart rate, blood pressure and EKG mentioned above Patient was able to exercise for a total of 3 minutes on Anthony protocol, METs 4.6 Maximum heart rate 139 Maximum blood pressure 217/68 Stress EKG, Minimal nondiagnostic changes Recovery EKG , Return to baseline Conclusion: Poor exercise tolerance for 3 minutes on standard Anthony protocol 4.6 METS achieving 92% of maximal expected heart rate Hypertensive response to exercise with peak blood pressure 217/68 returned to baseline during recovery Nondiagnostic EKG changes with exercise with [address] depression in lead II, III and aVF. Return to baseline during recovery No arrhythmia was detected during stress test Copy Copies To 1: ANGELA PATTERSON BASHAR J MD Sep 19, 2022 11:03
== END ==
LOC: CARD 09:24
PROVIDERS: ATTEND Physician Assistant
DX: R07.9 Chest pain, unspecified (principal)
CPT/HCPCS: 93017

== ENCOUNTER 2023-01-25 06:47 | Outpatient (CLI) | payer MEDICARE, OTHER ==
[~2023-01-25] VITALS: Ht 165 cm; Wt 90.0 kg
[2023-01-25] MEDS ORDERED: ASPI-999 PO (12:03)
[2023-01-25] MEDS ORDERED: AMLO-250 PO (12:03)
[2023-01-25] MEDS ORDERED: LEVO137C4 PO (12:03)
[2023-01-25] MEDS ORDERED: OMEP40CA6 PO (12:03)
== END 2023-01-25 12:35 | disposition home or self-care (01) ==
LOC: PREOP 06:47
PROVIDERS: ATTEND Internal Medicine
DX: Z01.818 Encounter for other preprocedural examination (principal)

== ENCOUNTER → 2023-01-30 | Outpatient (CLI) | payer MEDICARE, OTHER ==
[~2023-01-30] MED LIST changes: +AMLO-250 PO; +ASPI-999 PO; +LEVO137C4 PO; +OMEP40CA6 PO
--- NOTE | 2023-01-30 11:02 | Diagnostic Imaging Report ---
Indication: Routine screening. Comparison is made with prior mammogram 08/31/2020 and 08/03/2018. 2-D and 3-D bilateral screening mammography was performed with CAD. The current study was also evaluated with a Computer Aided Detection (CAD) system. Scattered fibroglandular densities are identified bilaterally. The parenchymal pattern is stable. No mass or malignant-appearing microcalcifications are seen. Axillae are unremarkable. IMPRESSION: BI-RADS Category 1 No mammographic features suspicious for malignancy are identified. ACR BI-RADS Category 1: Negative. Result letter will be mailed to the patient. Note: At least 10% of breast cancer is not imaged by mammography. Dictated by: Dictated on workstation # [id number]
== END ==
LOC: RAD 08:43
PROVIDERS: ATTEND Family Medicine
DX: Z12.31 Encounter for screening mammogram for malignant neoplasm of breast (principal)
CPT/HCPCS: 77063; 77067

== ENCOUNTER 2023-02-03 08:23 | Day surgery (SDC) | payer MEDICARE, OTHER ==
--- NOTE | 2023-01-24 09:01 | HISTORY AND PHYSICAL ---
PANENDOSCOPY HISTORY AND PHYSICAL HISTORY OF PRESENT ILLNESS: The patient is a 72-year-old white female referred by Dr. Patterson for EGD and colonoscopy. She last accomplished colonoscopy 4-1/2 years ago, at which time she had a 5 mm tubular adenoma without dysplasia, removed via hot forceps from the distal sigmoid colon. She had moderate diverticular disease at that time confined to the sigmoid colon. She is undergoing surveillance colonoscopy for this reason. In regards to EGD evaluation, she reports epigastric discomfort since a trip she took to [place]. This was despite taking 40 mg of omeprazole daily for reflux. She reports a 17-pound unexplained weight loss associated with this. She states that she just does not feel hungry. She denies dysphagia, melena or bright red blood per rectum and denies associated nausea. PAST MEDICAL HISTORY: Significant for hypertension. 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 She had history of non-Hodgkin's lymphoma diagnosed about 10 years ago, predominant neck adenopathy with no evidence for recurrence. PAST SURGICAL HISTORY: Noncontributory. FAMILY HISTORY: Father at the age of 52 of complications from acute pancreatitis. Mother at 88, reportedly of natural causes with no reported family history for GI tract malignancy. SOCIAL HISTORY: She is retired, [id number]-lhep smoking history, quit 35 years ago. Occasional small volume alcohol intake. REVIEW OF SYSTEMS: CONSTITUTIONAL: Pertinent for 17-pound weight loss over the past 2-3 months, unintentional without night sweats, chills or fever. She has noted no adenopathy. GASTROINTESTINAL: As noted in the HPI. PULMONARY: Denies cough, wheezing or shortness of breath. CARDIOVASCULAR: Denies chest pain, orthopnea, PND, or pedal edema. PHYSICAL EXAMINATION: GENERAL: Reveals a white female, appeared to be in no acute distress. HEENT: Unremarkable. Sclerae nonicteric. NECK: Revealed no JVD, adenopathy or bruits. CHEST: Clear to auscultation. CARDIOVASCULAR: Reveals a regular rate and rhythm without murmur, S3, or S4. ABDOMEN: Soft, supple. She has some epigastric discomfort with guarding, but no rebound. No mass or organomegaly noted. Bowel sounds positive, no bruits noted. EXTREMITIES: Revealed no cyanosis, clubbing or edema. ASSESSMENT AND PLAN: Due to past history of colon polyps, see above. The patient is undergoing diagnostic colonoscopy. For evaluation of unexplained weight loss with epigastric pain refractory to H2 anders therapy, the patient is undergoing EGD evaluation. Prep instructions were given and questions were answered. I thank you for the referral of this pleasant lady. Job ID: [id number] DocumentID: [id number] Dictated Date: 01/18/2023 13:12:23 Physical Therapist Clinic Director Date: 01/18/2023 13:32:00 Dictated By: ELENA YU MD [facility]
[~2023-02-03] VITALS: Ht 165 cm; Wt 90.0 kg
[2023-02-03] MEDS ORDERED: LACTATED RINGERS 1,000 ML 1,000 ML IV STA (08:38)
[2023-02-03] MEDS ORDERED: HURRICAINE EXT TUBE (BENZOCAINE) XX PRN (08:45)
[2023-02-03 08:55] VITALS: BP 119/73
--- NOTE | 2023-02-03 09:11 | Pre-Op Note & Conscious Sedat ---
Pre-Operative Progress Note Date H&P Reviewed: Feb 03, 2023 Time H&P Reviewed: 09:10 History & Physical: H&P Reviewed, Patient Examed, No changes noted Pre-Op Diagnosis: colon polyps epigastric pain with weight loss Moderate Sedation PreProcedure ASA Score 2 Airway Lungs Heart ASA score ASA 1: a normal healthy patient ASA 2: a patient with a mild systemic disease (mid diabetes, controlled hypertension, obesity ASA 3: a patient with a severe systemic disease that limits activity (angina, COPD, prior Myocardial infarction) ASA 4: a patient with an incapacitating disease that is a constant threat to life (CHF, renal failure) ASA 5: a moribund patient not expected to survive 24 hrs. (ruptured aneurysm) ASA 6: a declared brain- patient whose organs are being harvested. For emergent operations, add the letter E after the classification Mallampati Classification Grade 2 Sedation Plan Analgesia, Amnesia, Plan communicated to team members, Discussed options with patient/fam, Discussed risks with patient/fam The patient is an appropriate candidate to undergo the planned procedure, sedation, and anesthesia. The patient immediately re-assessed prior to indication. ELENA YU MD Feb 03, 2023 09:11
[2023-02-03 10:30] VITALS: BP 104/49
--- NOTE | 2023-02-03 10:33 | Progress Note-Post Operative ---
Post-Procedure Note Physician (s)/Mannequin Molder (s) Physician ELENA YU MD Pre-Procedure Diagnosis Pre-Procedure Diagnosis: colon polyps epigastric pain with weight loss Post-Procedure Diagnosis Post-operative diagnosis: endoscope was inserted in the oral cavity and under direct visualization the esophagus intubated. This was passed down the esophagus to stomach and second portion of the duodenum. A careful inspection was made as the endoscope was withdrawn. Findings: The posterior pharynx epiglottis arytenoid aperture and true and false vocal folds were unremarkable to visual inspection. Proximal mid and distal esophagus were unremarkable except for a small sliding hiatal hernia there is no evidence for erosive esophagitis the Z-line was distinct and no evidence for Lucas's changes noted. Present in the cardia and fundus were multiple fundal appearing polyps all had the typical appearance largest 1 about a centimeter and half in size. Polyp was removed in its entirety through cold biopsy and submitted for histopathology. There were minimum of 40 no other abnormalities were noted. No evidence for gastritis or ulceration was noted. A biopsy was obtained and submitted for helical factor evaluation. The pylorus pyloric channel duodenal bulb and second portion of the of the duodenum were unremarkable. A/P 1. Small sliding hiatal hernia's presents without evidence for Lucas's change or erosive esophagitis. 2. Multiple fundal appearing polyps were present likely secondary to chronic PPI therapy. There are number does slightly increase the risk for future GI tract malignancy. I have advised that she try high-dose H2 anders therapy starting with 40 mg of Pepcid twice daily with follow-up EGD recommendations in 1 year. We then proceeded with colonoscopy. The patient was placed in the left lateral cues physician. prior to colonoscopy digital rectal evaluation was performed. Anal sphincter tone was normal with intact perianal reflex. No abnormalities noted on digital inspection anal canal or distal rectal vault. The colonoscope was then inserted into the rectum and under direct visualization advanced to the cecum. The cecum was identified by the indication of the cecal valve and cecal strap. Photographic documentation obtained. Careful inspection was made as the colonoscope withdrawn. Quality the prep was good. Findings there are no evidence for internal/external hemorrhoids and the rectum was unremarkable. A sessile 5 mm polyp was noted in the distal sigmoid colon it was biopsied and ablated with no subsequent blood loss. Moderate diverticular disease confined to the sigmoid colon was present without evidence of diverticulitis. No other sigmoid colonic Abna's are appreciated. The descending colon was unremarkable. A 3 mm hyperplastic appearing polyp was noted in the distal transverse colon was biopsied and ablated. No other transverse colon Nausea appreciated. The hepatic flexure ascending colon and cecum were unremarkable. Assessment: 2 small polyps removed via hot forceps 1 from the distal transverse colon and the other 1 from the distal sigmoid colon with no subsequent blood loss. Moderate diverticular disease confined to the sigmoid colon is present without evidence for diverticulitis. No other abnormalities are noted. Would advocate consideration for repeat screening colonoscopy in 5 years. CC: Dr. Angela Patterson DO. ELENA YU MD Feb 03, 2023 10:33
[2023-02-03 10:35] VITALS: BP 110/54
[2023-02-03] MEDS ORDERED: LACTATED RINGERS 1,000 ML 1,000 ML IV ONE (10:49)
[2023-02-03 11:25] VITALS: BP 110/54
--- NOTE | 2023-02-03 12:34 | Anesthesia-General Post-Op ---
MAC Patient Condition Mental Status/LOC: Same as Preop Cardiovascular: Satisfactory Nausea/Vomiting: Absent Respiratory: Satisfactory Pain: Controlled Complications: Absent Post Op Complications Complications None Follow Up Care/Instructions Patient Instructions None needed. Anesthesiology Discharge Order Discharge Order Patient is doing well, no complaints, stable vital signs, no apparent adverse anesthesia problems. No complications reported per nursing. AGATA ALVAREZ CRNA Feb 03, 2023 12:34
== END 2023-02-03 11:25 | disposition home or self-care (01) ==
LOC: ENDO 08:23
PROVIDERS: ATTEND Internal Medicine
DX: K31.7 Polyp of stomach and duodenum (principal); K63.5 Polyp of colon; K57.30 Diverticulosis of large intestine without perforation or abscess without bleeding; R63.4 Abnormal weight loss; K44.9 Diaphragmatic hernia without obstruction or gangrene; Z87.891 Personal history of nicotine dependence; Z79.899 Other long term (current) drug therapy
CPT/HCPCS: 88305

== ENCOUNTER → 2023-03-07 | Outpatient (CLI) | payer MEDICARE, OTHER ==
--- NOTE | 2023-03-07 10:51 | Diagnostic Imaging Report ---
INDICATION: R119.8 -epigastric pain, abdominal fullness TECHNIQUE: Multiple real-time mayers scale sonographic images of the abdomen. CORRELATION STUDY: 09/24/2020 FINDINGS: LIVER: Normal echotexture within the visualized portions of the liver. There is normal, hepatopedal direction of flow within the main portal vein. Liver length 15.3 cm. GALLBLADDER: No shadowing gallstones or pericholecystic fluid. COMMON BILE DUCT: Nondilated at 0.6 cm. PANCREAS: Largely obscured by overlying bowel gas. SPLEEN: Unremarkable at 9.6 x 4.4 x 4.8 cm ABDOMINAL AORTA: Visualized segments, unremarkable. INFERIOR VENA CAVA: Visualized segments, unremarkable. RIGHT KIDNEY: 10.9 x 4.9 x 5.2 cm. Unremarkable. LEFT KIDNEY: 9.7 x 4.6 x 4.4 cm. Unremarkable. OTHER: No significant ascites. IMPRESSION: 1. Unremarkable-appearing abdominal ultrasound evaluation. Dictated by: Dictated on workstation # [id number]
== END ==
LOC: RAD 03-06 08:30
PROVIDERS: ATTEND Family Medicine
DX: R10.13 Epigastric pain (principal); R19.8 Other specified symptoms and signs involving the digestive system and abdomen
CPT/HCPCS: 76700

== ENCOUNTER → 2023-04-14 | Outpatient (CLI) | payer MEDICARE, OTHER ==
--- NOTE | 2023-04-14 18:22 | Diagnostic Imaging Report ---
EXAMINATION: Lumbar spine radiographs, 3 views. COMPARISON: None. HISTORY: 72-year-old female, low back pain. Left lower extremity radiculopathy. FINDINGS: There are bilateral facet degenerative changes at L4-L5 and L5-S1. There is moderate disc height loss at L5-S1. There are multilevel endplate degenerative related changes of the thoracolumbar spine. There is no identified compression deformity or fracture. The sacroiliac joints are unremarkable. IMPRESSION: 1. Multilevel disc degenerative changes of the lumbar spine most notable at L5-S1 with moderate disc height loss at this level. 2. Bilateral facet degenerative changes at L4-L5 and L5-S1. 3. No identified compression deformity or fracture. Dictated by: Dictated on workstation # [id number]
== END ==
LOC: RAD 11:05
PROVIDERS: ATTEND Nurse Practitioner Family
DX: M51.16 Intervertebral disc disorders with radiculopathy, lumbar region (principal); M51.17 Intervertebral disc disorders with radiculopathy, lumbosacral region; M47.26 Other spondylosis with radiculopathy, lumbar region; M47.27 Other spondylosis with radiculopathy, lumbosacral region
CPT/HCPCS: 72100